=== PATIENT | female | born 1995 | race African-American/Black ===

== ENCOUNTER 2016-10-22 00:01 | Emergency (ER) | payer OTHER ==
[~2016-10-22] VITALS: Ht 160 cm; Wt 59.0 kg
[2016-10-22 00:29] VITALS: BP 128/74
--- NOTE | 2016-10-22 00:35 | NUR ---
TO BED 5 A 21 YO FEMALE BIBSELF WITH C/O COUGH, CONGESTION X 1 DAY. PATIENT AAOX4, AMBULATORY. AFEBRILE. PER PATIENT SHE HAS YELLOW-GREEN SPUTUM. NO N/V, DENIES H/A. VSS. INITIATED COMFORT MEASURES. GOWNED. AWAITING FOR ER MD HILTON.
--- NOTE | 2016-10-22 01:22 | NUR ---
DR BURLESON AT BEDSIDE.
== END 2016-10-22 01:33 | disposition home or self-care (01) ==
LOC: ER 00:01
DX: J06.9 Acute upper respiratory infection, unspecified (principal); R04.2 Hemoptysis; F12.90 Cannabis use, unspecified, uncomplicated
CPT/HCPCS: A4606; Z7610

== ENCOUNTER 2018-03-24 02:59 | Emergency (ER) | payer OTHER ==
[~2018-03-24] VITALS: Ht 160 cm; Wt 58.1 kg
[2018-03-24] MEDS ORDERED: TDAP [DIPH/PERTUSSIS/TET] 0.5 ML VIAL IM ONE ×2 (03:30)
[2018-03-24] MEDS ORDERED: GELATIN SPONGE,ABSORBABLE 1 SPONGE SPONGE TP ONE ×4 (03:34→04:06)
--- NOTE | 2018-03-24 04:56 | NUR ---
Patient discharged to home in stable condition. Written and verbal after care instructions given. Patient verbalizes understanding of instruction. rx given to f/u tx plan home.
[2018-04-02 11:03] VITALS: BP 117/78
== END 2018-03-24 04:56 | disposition home or self-care (01) ==
LOC: ER 03:14
DX: S61.211A Laceration without foreign body of left index finger without damage to nail, initial encounter (principal); F10.10 Alcohol abuse, uncomplicated; F17.200 Nicotine dependence, unspecified, uncomplicated; Y90.9 Presence of alcohol in blood, level not specified; W27.8XXA Contact with other nonpowered hand tool, initial encounter; Y93.89 Activity, other specified; Y92.89 Other specified places as the place of occurrence of the external cause; Y99.8 Other external cause status
CPT/HCPCS: 90715; A4606; A6402; Z7610